=== PATIENT | female | born 1995 | race Caucasian/White ===

== ENCOUNTER 2018-05-14 13:37 | Emergency (ER) | payer BC ==
--- NOTE | 2018-05-14 15:58 | RAD ---
HISTORY: calf pain and swelling COMPARISONS: None relevant TECHNIQUE: Multiple transverse and longitudinal ultrasound images were obtained of the right lower extremity from the level of the common femoral vein inferiorly through to the infrapopliteal veins using grayscale, color Doppler, and spectral Doppler imaging with and without compression and with augmentation. Comparison images were obtained of the contralateral common femoral vein. FINDINGS: VEINS: The venous system of the right lower extremity is compressible throughout its course, with normal flow on color Doppler imaging and normal response to augmentation on spectral Doppler imaging. SOFT TISSUES: Unremarkable. OTHER FINDINGS: None. IMPRESSION: NO RIGHT LOWER EXTREMITY DEEP VEIN THROMBOSIS
[2018-05-14 16:58] VITALS: BP 128/87
--- NOTE | 2018-05-14 18:17 | ED ---
Lower Extremity - HPI Summary HPI Summary: Pt. is a 23-year-old female who presents emergency department for left leg pain and cramping times several days. Patient notes that she flew home from [place] 4 days ago. Patient states when she got off the plane she had bilateral lower leg edema. Edema resolved by the next morning. She states she also is a frequent runner. She denies any new activities otherwise. No chest pain or shortness of breath. Pain is worse with activity. Patient is on oral contraceptives. She otherwise has no past medical history. Symptoms are mild to moderate in severity. - History of Current Complaint Chief Complaint: EDExtremityLower Stated Complaint: RT LEG PAIN Time Seen by Provider: 05/14/18 13:50 Hx Obtained From: Patient Hx Last Menstrual Period: 08/23/16 Pain Intensity: 0 Pain Scale Used: 0-10 Numeric - Allergies/Home Medications Allergies/Adverse Reactions: Allergies Allergy/AdvReac Type Severity Reaction Status Date / Time No Known Allergies Allergy Unverified 05/14/18 13:47 PMH/Surg Hx/FS Hx/Imm Hx Previously Healthy: Yes Endocrine/Hematology History: Denies: Hx Diabetes, Hx Thyroid Disease Cardiovascular History: Denies: Hx Hypertension, Hx Pacemaker/ICD Respiratory History: Reports: Hx Asthma Denies: Hx Chronic Obstructive Pulmonary Disease (COPD) GI History: Denies: Hx Ulcer History: Denies: Hx Renal Disease Sensory History: Denies: Hx Hearing Aid Psychiatric History: Denies: Hx Panic Disorder - Immunization History Immunizations Up to Date: Yes Infectious Disease History: No Infectious Disease History: Denies: Hx Hepatitis, Hx Human Immunodeficiency Virus (HIV), Traveled Outside the [place] in Last 30 Days - Family History Known Family History: Positive: Other - FAther positive history for cancer, currently in treatment - Social History Occupation: Student Lives: With Family Alcohol Use: Occasionally Alcohol Amount: "every other day or so" Substance Use Type: Reports: None Smoking Status (MU): Never Smoked Tobacco Review of Systems Cardiovascular: Negative Negative: Palpitations, Chest Pain Respiratory: Negative Negative: Shortness Of Breath Positive: Other - right lower leg pain and cramping Skin: Negative Negative: Weakness, Paresthesia, Numbness All Other Systems Reviewed And Are Negative: Yes Physical Exam Triage Information Reviewed: Yes Vital Signs On Initial Exam: Initial Vitals Temp Pulse Resp BP Pulse Ox 98.3 F 90 15 130/90 100 08/21/18 13:44 05/14/18 13:44 05/14/18 13:44 05/14/18 13:44 05/14/18 13:44 Vital Signs Reviewed: Yes Appearance: Positive: Well-Appearing - Pt. sitting up in bed in no acute distress. Skin: Positive: Warm, Dry Head/Face: Positive: Normal Head/Face Inspection Eyes: Positive: Normal, EOMI Neck: Positive: Supple Respiratory/Lung Sounds: Positive: Clear to Auscultation, Breath Sounds Present Cardiovascular: Positive: Normal, RRR Musculoskeletal: Positive: Other - No pitting edema to bilateral lower extremities. Bilateral palpable pedal pulses. No wounds, rashes or signs of infection. Mild pain to palpation to the right. Negative Dhaval. No pain to the left leg. Neurological: Positive: Normal, CN Intact II-III Psychiatric: Positive: Affect/Mood Appropriate Diagnostics - Vital Signs Vital Signs Temp Pulse Resp BP Pulse Ox 05/14/18 16:57 98 F 70 16 128/87 100 05/14/18 13:44 98.3 F 90 15 130/90 100 - Laboratory Lab Statement: Any lab studies that have been ordered have been reviewed, and results considered in the medical decision making process. Lower Extremity Course/Dx - Course Course Of Treatment: Pt. presenting with left calf pain after recent long travel as well as being on control. Given her risk factors for DVT, venous duplex was ordered to rule out DVT. Venous ultrasound is negative for DVT or acute findings, reading per radiology. Results were discussed with patient. Suspect muscle strain. Advised to stretch before and after running. To ice and elevate intermittently. Anti-inflammatories for pain. Close follow- up with PCP if symptoms continue and return to the ER for change or worsen. - Diagnoses Differential Diagnosis/HQI/PQRI: Positive: DVT, Sprain, Strain Provider Diagnoses: Muscle strain, Muscle cramp Discharge - Sign-Out/Discharge Documenting (check all that apply): Patient Departure - Discharge Plan Condition: Good Disposition: HOME Patient Education Materials: Muscle Strain (ED), Muscle Cramp (ED) Referrals: [facility] [Outside] No Primary Care Phys,NOPCP [Primary Care Provider] - Additional Instructions: Schedule a follow up appointment with your PCP Ice leg intermittently Stretch before and after funning Increase fluids Take a daily multivitamin Return to ER if symptoms change or worsen - Billing Disposition and Condition Condition: GOOD Disposition: Home
== END 2018-05-14 16:57 | disposition home or self-care (01) ==
LOC: ED 13:37
DX: S86.912A Strain of unspecified muscle(s) and tendon(s) at lower leg level, left leg, initial encounter (principal); X58.XXXA Exposure to other specified factors, initial encounter; Y92.9 Unspecified place or not applicable; R25.2 Cramp and spasm
CPT/HCPCS: 99282

== ENCOUNTER 2018-10-19 10:04 | Emergency (ER) | payer BC ==
[2018-10-19 10:19] VITALS: BP 116/76
--- NOTE | 2018-10-19 11:04 | UC ---
Throat Pain/Nasal Gavin HPI - HPI Summary HPI Summary: LEFT side of throat more uncomfortable. also left cervical anterior discomfort. VSS: 997 5/10 throat discomfort. Nurse's Note: starting last night sore throat, left side is swollen sore. - History of Current Complaint Chief Complaint: UCGeneralIllness Stated Complaint: THROAT PAIN Time Seen by Provider: 10/19/18 10:27 Hx Last Menstrual Period: unknown Pain Intensity: 5 - Allergies/Home Medications Allergies/Adverse Reactions: Allergies Allergy/AdvReac Type Severity Reaction Status Date / Time No Known Allergies Allergy Unverified 10/19/18 10:22 Home Medications: Home Medications Norgestrel-Ethinyl Estradiol [Fot-[id number] Tablet] 1 each PO DAILY WITH MEAL 10/19/18 [History Confirmed 10/19/18] PMH/Surg Hx/FS Hx/Imm Hx Previously Healthy: Yes Respiratory History: Asthma, Bronchitis - Surgical History Surgical History: None Surgery Procedure, Year, and Place: denies - Family History Known Family History: Positive: Other - FAther positive history for cancer, currently in treatment - Social History Alcohol Use: Weekly Alcohol Amount: "every other day or so" Substance Use Type: None Smoking Status (MU): Never Smoked Tobacco Review of Systems All Other Systems Reviewed And Are Negative: Yes Constitutional: Positive: Negative Skin: Positive: Negative Eyes: Positive: Negative ENT: Positive: Sore Throat. Negative: Sinus Congestion Respiratory: Positive: Negative Cardiovascular: Positive: Negative Gastrointestinal: Positive: Negative Genitourinary: Positive: Negative Motor: Positive: Negative Neurovascular: Positive: Negative Musculoskeletal: Positive: Negative Neurological: Positive: Negative Psychological: Positive: Negative Is Patient Immunocompromised?: No Physical Exam Triage Information Reviewed: Yes Appearance: Well-Appearing Vital Signs: Initial Vital Signs Temp 99.7 F 10/19/18 10:16 Pulse 78 10/19/18 10:16 Resp 18 10/19/18 10:16 BP 116/76 10/19/18 10:16 Pulse Ox 100 10/19/18 10:16 Vital Signs Reviewed: Yes Eye Exam: Normal ENT Exam: Normal ENT: Positive: Pharyngeal erythema, Tonsillar swelling - left greater than right ; not to midline. Negative: Nasal congestion, Tonsillar exudate, Sinus tenderness Dental Exam: Normal Neck exam: Normal Neck: Positive: 1 Respiratory: Positive: Chest non-tender, Lungs clear, Normal breath sounds Cardiovascular: Positive: RRR, No Murmur, Pulses Normal Abdomen Description: Positive: Nontender, No Organomegaly, Soft Musculoskeletal Exam: Normal Neurological Exam: Normal Psychological Exam: Normal Skin Exam: Normal Throat Pain/Nasal Course/Dx - Course Course Of Treatment: Sore throat; left side of throat more uncomfortable. Also left cervical anterior discomfort. Throat open. No SOB or difficulty swallowing. Rapid strep positive. Dx: strep throat. Treatment: amoxicillin, twice a day for 10 days. Viscous lidocaine gargle. - Differential Dx/Diagnosis Differential Diagnosis/HQI/PQRI: Foreign Body, Laryngitis, Pharyngitis, Tonsillitis Provider Diagnosis: Strep pharyngitis Discharge - Sign-Out/Discharge Documenting (check all that apply): Patient Departure All imaging exams completed and their final reports reviewed: No Studies - Discharge Plan Condition: Stable Disposition: HOME Prescriptions: Amoxicillin PO (*) [Amoxicillin 875 MG (*)] 875 mg PO BID #20 tab MDD 2 Lidocaine 2% VISCOUS* [Xylocaine 2% Viscous*] 15 ml SWISH SPIT Q6H #1 btl MDD 3 Patient Education Materials: Strep Throat (DC) Referrals: No Primary Care Phys,NOPCP [Primary Care Provider] - Additional Instructions: WE DISCUSSED: PLEASE SEEK CARE AT THE EMERGENCY DEPARTMENT IF SYMPTOMS WORSEN OR IF NEW SYMPTOMS DEVELOP. FOLLOW UP WITH YOUR PRIMARY CARE PHYSICIAN IF CONDITION CONTINUES BEYOND 3 DAYS WITHOUT IMPROVEMENT. YOUR DIAGNOSIS IS: STREP THROAT YOUR PRESCRIPTION RECOMMENDATION IS: amoxicillin, twice a day for ten days; viscous lidocaine gargle for comfort OTHER INSTRUCTIONS: USEFUL WAYS TO FEEL BETTER WITHOUT MEDICATIONS: STAND UNDER SHOWER STREAM TO LOOSEN SECRETIONS. USE A VAPORIZOR. STAY AWAY FROM ANY SMOKE OR IRRITANTS. USE SALINE NASAL SPRAY TO KEEP FLOW OF MUCOUS FROM NOSTRILS AND SINUSES. CONSIDER USING NETI POT TO HELP WITH ALLERGIES AND CONGESTION IN THE NOSE. USE THIS THREE TIMES A WEEK. YOU CAN GET THIS AT [employer] IN [place] OR VARIOUS DRUGSTORES. DRINK LOTS OF WARM FLUIDS USEFUL HOME REMEDIES: WARM WATER GARGLES, WITH TSP OF SALT PER 8 OUNCES OF WATER, GARGLE FOR A FEW SECONDS AND SPIT OUT; GARGLE AND SPIT OUT; EVERY THREE HOURS. AND/OR: WARM WATER OR TEA, HONEY AND LEMON; 2-3 CUPS A DAY. FOR SORE THROAT: KEEP THROAT MOIST WITH LOZENGES; TEA AND HONEY. USE WARM WATER GARGLES 3-4 TIMES A DAY. FOLLOW UP: RE-CHECK IN 1O DAYS, NEEDED, IF YOU ARE NOT IMPROVING. RETURN HERE OR SEE YOUR PHYSICIAN. RE-CHECK SOONER IF INCREASED PAIN OR TEMPERATURE. - Billing Disposition and Condition Condition: STABLE Disposition: Home
== END 2018-10-19 11:28 | disposition home or self-care (01) ==
LOC: UCEAST 10:04
DX: J02.0 Streptococcal pharyngitis (principal); J45.909 Unspecified asthma, uncomplicated; R29.898 Other symptoms and signs involving the musculoskeletal system
CPT/HCPCS: 87651; 99212; G0463

== ENCOUNTER 2019-02-23 13:44 | Emergency (ER) | payer BC ==
[2019-02-23 14:00] VITALS: BP 108/70
--- NOTE | 2019-02-27 12:50 | UC ---
Throat Pain/Nasal Gavin HPI - HPI Summary HPI Summary: Sore throat , started today. Feels it is strep. Had strep in [place] this yr. nothing makes it better/worse. no other assoc. symptoms. - History of Current Complaint Chief Complaint: UCRespiratory Stated Complaint: SORE THROAT Time Seen by Provider: 02/23/19 13:50 Hx Obtained From: Patient Hx Last Menstrual Period: unknown Pain Intensity: 1 Pain Scale Used: Adult Non Verbal - Allergies/Home Medications Allergies/Adverse Reactions: Allergies Allergy/AdvReac Type Severity Reaction Status Date / Time No Known Allergies Allergy Unverified 02/23/19 14:00 PMH/Surg Hx/FS Hx/Imm Hx - Additional Past Medical History Additional PMH: none Previously Healthy: Yes - Surgical History Surgical History: None Surgery Procedure, Year, and Place: denies - Family History Known Family History: Positive: Other - FAther positive history for cancer, currently in treatment - Social History Alcohol Use: Weekly Alcohol Amount: "every other day or so" Substance Use Type: None Smoking Status (MU): Never Smoked Tobacco Review of Systems All Other Systems Reviewed And Are Negative: Yes Constitutional: Positive: Negative. Negative: Fever Skin: Negative: Rash ENT: Positive: Sore Throat. Negative: Nasal Discharge Respiratory: Negative: Cough Cardiovascular: Positive: Negative Gastrointestinal: Negative: Nausea Physical Exam Triage Information Reviewed: Yes Appearance: Well-Appearing Vital Signs: Initial Vital Signs Temp 98.4 F 02/23/19 13:55 Pulse 80 02/23/19 13:55 Resp 18 02/23/19 13:55 BP 108/70 02/23/19 13:55 Pulse Ox 100 02/23/19 13:55 Vital Signs Reviewed: Yes Eyes: Positive: Conjunctiva Clear ENT: Positive: Pharynx normal, TMs normal Neck: Positive: Supple, No Lymphadenopathy Respiratory Exam: Normal Cardiovascular Exam: Normal Throat Pain/Nasal Course/Dx - Course Course Of Treatment: NEG RAPID STREP TODAY AFTER ONE DAY OF SORE THROAT. EXAM NL. VITALS GOOD. [place] RECOMMENDED - Differential Dx/Diagnosis Differential Diagnosis/HQI/PQRI: Pharyngitis, Tonsillitis, URI Provider Diagnosis: Pharyngitis Discharge - Sign-Out/Discharge Documenting (check all that apply): Patient Departure All imaging exams completed and their final reports reviewed: No Studies - Discharge Plan Condition: Good Disposition: HOME Patient Education Materials: Pharyngitis (ED) Referrals: No Primary Care Phys,NOPCP [Primary Care Provider] - Additional Instructions: please follow up with your pcp. - Billing Disposition and Condition Condition: GOOD Disposition: Home
== END 2019-02-23 14:25 | disposition home or self-care (01) ==
LOC: UCEAST 13:44
DX: J02.9 Acute pharyngitis, unspecified (principal)
CPT/HCPCS: 87651; 99211; G0463

== ENCOUNTER 2019-03-07 08:25 | Emergency (ER) | payer BC ==
--- OUTSIDE RECORDS SUMMARY | 2019-03-07 08:31 | XMS REPORT | Continuity of Care Document ---
:1995 External Reference #:[id number] Author Name Concetta Hall NP Address [address] [facility] [place] [address] Care Team Providers Name Role Phone Can Stahl MD Care Team Information Butter Grader Unavailable Can Stahl MD Primary Care Physician Unavailable Payers Date Identification Numbers Payment Provider Subscriber Effective: 2016 Policy Number: [id number] BC/BS Of GENNARO Chaz Hannah PayID: [id number] [address] [place] [id number] Family History Date Family Member(s) Observation Comments Father 51 Mother 49 Social History Type Date Description Comments Sex Unknown Marital Status Single Lives With Mother And Father Occupation data base coordinator [employer] Tobacco Use Start: Unknown Nonsmoker ETOH Use Occasional Recreational Drug Use Denies Drug Use Tobacco Use Start: Unknown Patient has never smoked Smoking Status Reviewed: 03/25/18 Patient has never smoked Exercise Type/Frequency Does not exercise Exercise Type/Frequency Used to play soccer daily Allergies, Adverse Reactions, Alerts Description No Known Drug Allergies Medications Active Medications SIG Qnty Indications Ordering Date Provider Methylphenidate Take one by mouth 30tabs F90.0 Concetta Larsen 03/05/2019 Hydrochloride ER daily Please fill JEFFREY Hall 36mg early due to Tablets ER allergic reaction Advair Diskus one inhalation 60units J45.20 Concetta Larsen 06/06/2017 twice daily JEFFREY Hall 250-50mcg/Dose Aerosol Proair HFA take 1-2 puffs 8.500gm J45.20 Concetta Larsen 06/06/2017 108(90Base) prior to exercise JEFFREY Hall mcg/Act Aerosol and as needed for wheezing and difficulty breathing Lo Loestrin Fe 1 by mouth every Unknown 1mg-10 mcg day / 10 mcg Tablets History Medications Prednisone take 2 by mouth 10tabs J03.90 Concetta AlasMelani 02/26/2019 - 20mg as one dose JEFFREY Hall 03/05/2019 Tablets daily until gone Prednisone take 2 by mouth 14tabs J45.901 Concetta AlasMelani 01/17/2019 - 20mg as one dose JEFFREY Hall 02/26/2019 Tablets daily until gone Mupirocin apply to 22gm L01.00 Concetta AlasMelani 08/07/2018 - 2% affected area 3 JEFFREY Hall 03/05/2019 Ointment times per day until healed Sulfamethoxazole/Tr 2 po x 1 then 1 [facility]tabs [facility] DS po bid x 2 more [facility] 03/28/2018 days 800-160mg Tablets Concerta 1 by mouth once 30tabs [facility], - 36mg a day in the Afnp-C 03/05/2019 Tablets ER morning Mononessa 1 po qd 28tabs [facility], - Afnp-C 06/06/2017 0.25-35mg-mcg Tablets Advair Diskus 1 puff twice a Unknown - day, rinse after 12/10/2017 250-50mcg/Dose Aerosol Proair HFA 2 puffs every 4 Unknown - hours as needed 12/10/2017 108(90Base) mcg/Act Aerosol Immunizations CPT Code Status Date Vaccine Lot # [id number] Given 08/07/2018 Influenza Vac, Quadrivalent, Slit Virus, Im [id number] 58273 Given 04/11/2011 Meningococcal Conjugate Vaccine,Serogroups For Intramuscular Use 42106 Given 03/18/2009 Tdap Tetanus, W Pertussis 59629 Given 03/12/2008 Gardasil vacine typs 6,11,16,18 3 dose schedule 27028 Given 03/12/2008 Hep A Ped 2-Dose Immunization 98961 Given 02/04/2007 Gardasil vacine typs 6,11,16,18 3 dose schedule 70648 Given 02/04/2007 Hep A Ped 2-Dose Immunization 78775 Given 10/29/2006 Gardasil vacine typs 6,11,16,18 3 dose schedule 27788 Given 12/05/2005 Meningococcal Conjugate Vaccine,Serogroups For Intramuscular Use 51473 Given 07/15/2004 Tdap Tetanus, W Pertussis 87079 Given 05/14/1999 MMR Virus Immunization 56062 Given 05/05/1999 (IPV) Inactive Poliovirus Vaccine 17156 Given 05/05/1999 DTaP Immunization 04689 Given 01/22/1997 Varicella (Chicken Pox) Immunization 15472 Given 06/15/1995 Hib PRP-T Conjugate 4 Dose Schedule 25760 Given 06/15/1995 DTaP Immunization 37073 Given 06/15/1995 MMR Virus Immunization 12076 Given 06/15/1995 (IPV) Inactive Poliovirus Vaccine 03171 Given 1994 Hepatitis B Immunization, -19 Years 40163 Given 1994 DTaP Immunization 87319 Given 1994 Hib PRP-T Conjugate 4 Dose Schedule 32780 Given 1994 (IPV) Inactive Poliovirus Vaccine 81143 Given 1994 DTaP Immunization 84875 Given 1994 Hib PRP-T Conjugate 4 Dose Schedule 69618 Given 1994 (IPV) Inactive Poliovirus Vaccine 18175 Given 1994 DTaP Immunization 21537 Given 1994 Hib PRP-T Conjugate 4 Dose Schedule 10484 Given 1994 Hepatitis B Immunization, [place]-19 Years 31928 Given 1994 Hepatitis B Immunization, [place]-19 Years Vital Signs Date Vital Result Comment 03/05/2019 9:18am BP Systolic 100 mmHg BP Diastolic 70 mmHg Heart Rate 70 /min Body Temperature 97.5 F Respiratory Rate 20 /min Weight 126.00 lb 02/26/2019 10:11am BP Systolic 110 mmHg BP Diastolic 68 mmHg Heart Rate 82 /min Body Temperature 98.2 F Respiratory Rate 18 /min Weight 126.00 lb 01/17/2019 2:10pm BP Systolic 110 mmHg BP Diastolic 60 mmHg Heart Rate 88 /min Body Temperature 98.5 F Respiratory Rate 16 /min Height 64 inches 5'4" Weight 129.00 lb BMI (Body Mass Index) 22.1 kg/m2 12/25/2018 11:01am BP Systolic 110 mmHg BP Diastolic 80 mmHg Heart Rate 68 /min Body Temperature 98.2 F Respiratory Rate 18 /min Weight 129.00 lb 08/07/2018 2:09pm BP Systolic 100 mmHg BP Diastolic 70 mmHg Heart Rate 68 /min Body Temperature 97.9 F Respiratory Rate 16 /min Height 64 inches 5'4" Weight 131.00 lb BMI (Body Mass Index) 22.5 kg/m2 06/19/2018 11:29am BP Systolic 110 mmHg BP Diastolic 70 mmHg Heart Rate 72 /min Body Temperature 98.1 F Respiratory Rate 16 /min Height 64 inches 5'4" Weight 126.00 lb BMI (Body Mass Index) 21.6 kg/m2 03/25/2018 1:35pm BP Systolic 118 mmHg BP Diastolic 70 mmHg Heart Rate 68 /min Body Temperature 98.3 F Respiratory Rate 15 /min Height 64 inches 5'4" Weight 124.00 lb BMI (Body Mass Index) 21.3 kg/m2 12/10/2017 1:04pm BP Systolic 108 mmHg BP Diastolic 62 mmHg Heart Rate 80 /min Body Temperature 99.2 F Height 64 inches 5'4" Weight 127.00 lb BMI (Body Mass Index) 21.8 kg/m2 06/06/2017 11:28am BP Systolic 100 mmHg BP Diastolic 60 mmHg Heart Rate 80 /min Body Temperature 98.7 F Respiratory Rate 16 /min Height 64 inches 5'4" Weight 129.38 lb BMI (Body Mass Index) 22.2 kg/m2 11/06/2016 10:11am BP Systolic 90 mmHg BP Diastolic 60 mmHg Heart Rate 64 /min Body Temperature 98.1 F Respiratory Rate 16 /min Height 64 inches 5'4" Weight 130.00 lb BMI (Body Mass Index) 22.3 kg/m2 Results Test Date Facility Test Result H/L Range Note Laboratory test [facility] Medicine Quickstrep NEGATIVE Negative finding 9 (607)- - Urine Culture And [facility] Urine Culture SEE RESULT 1 Sensitivities 8 BELOW Laboratory test [facility] Glucose 137 mg/dL High 70-105 finding 8 (607)- - Fingerstick (Fma) Hemoglobin A1c (Fma) 4.7% % 4.1-5.7 Ua - Micro (Fma) 03/25/2018 [facility] Appearance slightly cloudy (607)- - Color yellow Glucose, Urine (Fma/CMC/CTX) 100mg/dl # Bilirubin neg Ketones trace # SP Grav 1.025 Blood large # PH 6.0 Protein ssa 3+ # Urobil 0.2 Nitrite positive # Leukocytes (Fma/CMC/Centrex) small # Hyaline - /Lpf Granular - /Lpf WBC (Fma,Centrex) >50 RBC >20 Mucus (Fma/CBC/Centrex) - /Lpf Epith occ /Lpf # Bacteria 3+ /Hpf # Amorphous (Fma/CMC/Centrex) - /Lpf Crystals, Fluid (Fma/CMC/CTX) - Z#Comments - 1 SEE RESULT BELOW Name: KOMAL HANNAH : [address]: Abigail Do NP Acct: [id number] Unit: [id number] AGE: 23 Location: [facility] Re03/25/18 SEX: F Status: REG REF SPEC: [id number] ADAIR: 03/25/18-[address] [facility] [address]: Abigail Do BUSINESS ANALYSIS ANALYST REQ: [id number] RECD: 03/25/18 STATUS: COMP _ SOURCE: URINE SPDESC: ORDERED: Urine Culture COMMENTS: [id number] noonan urine top Procedure Result Reported Site Urine Culture Final 03/27/18- 08 ML Organism 1 ESCHERICHIA COLI [place] Count 25-50,000 (Moderate) CFU/ML 1. ESCHERICHIA COLI M.I.C. RX --------- ------ Ampicillin 4 S Cefazolin <=4 S Cefepime <=1 S Ceftriaxone <=1 S Ciprofloxacin <=0.25 S Gentamicin <=1 S Levofloxacin <=0.12 S Meropenem <=0.25 S Nitrofurantoin <=16 S Tetracycline <=1 S Pipercillin/Tazobactam <=4 S Trimethoprim/Sulfamethoxazole <=20 S Amoxicillin/Clavulanic Acid <=2 S Aztreonam <=1 S Contact the Microbiology Department for any additional antibiotic reporting. * ML - Main Lab . END OF REPORT DEPARTMENT OF PATHOLOGY, [address] [place] [address] Jasbir Quintanilla M.D. Director [facility] # [id number] Procedures Date Code Description Status 03/25/2018 77563 Finger Or Heel Stick Completed 11/06/2016 77244 Pure Tone Audiometry Completed Encounters Type Date Location Provider Dx Diagnosis Office Visit 02/26/2019 [facility] Office Concetta Interiano.90 Acute tonsillitis , 10:15a Rafael, BUSINESS ANALYSIS ANALYST unspecified Office Visit 01/17/2019 [facility] Office Concetta Larsen J06.9 Acute upper 2:15p JEFFREY Hall respiratory infection, unspecified J45.901 Unspecified asthma with (acute) exacerbation Office Visit 12/25/2018 11:00a [facility] Concetta Larsen 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 Rafael BUSINESS ANALYSIS ANALYST hyperactivity disorder, predom inattentive type J45.20 Mild intermittent asthma, uncomplicated R14.0 Abdominal distension (gaseous) Office Visit 08/07/2018 2:15p [facility] Concetta Larsen L01.00 ImpetigoRafael, BUSINESS ANALYSIS ANALYST unspecified Z23 Encounter for immunization Office Visit 06/19/2018 11:30a [facility] Concetta Larsen 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 Hall hyperactivity disorder, predom inattentive type J45.20 Mild intermittent asthma, uncomplicated Office Visit 03/25/2018 1:30p [facility] Abigail N39.0 Urinary tract [place], Afnp-C infection, site not specified R81 Glycosuria Office Visit 12/10/2017 1:00p [facility] Abigail 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 [place], hyperactivity Afnp-C disorder, predom inattentive type J06.9 Acute upper respiratory infection, unspecified J45.20 Mild intermittent asthma, uncomplicated Office Visit 06/06/2017 11:30a [facility] Concetta Larsen 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 Rafael BUSINESS ANALYSIS ANALYST hyperactivity disorder, predom inattentive type J45.20 Mild intermittent asthma, uncomplicated Office Visit 11/06/2016 10:00a [facility] Abigail 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 [place], hyperactivity Afnp-C disorder, predom inattentive type J45.20 Mild intermittent asthma, uncomplicated H91.93 Unspecified hearing loss, bilateral Plan of Treatment Future Appointment(s):06/27/2019 11:30 am - Concetta Hall NP at [facility] Jgddks0903/05/2019 - Concetta Hall NPL50.0 Allergic urticariaComments:Stop your new pills and go back to the old formulation.F90.0 Attention-deficit hyperactivity disorder, predominantly inatNew Medication:Methylphenidate Hydrochloride ER 36 mg - Take one by mouth daily Please fill early due to allergic cfmffypwC97.8 Allergy status to other drugs, medicaments and biological substances statusAllComments:1. Patient has been queried about patient's goals/preferences and functional/lifestyle goals at relevant visits. If relevant, describe: Has been discussed, noted above2. Treatment goals as explainedto the patient: see above3. Are there barriers to meeting treatment goals? Yes If Yes, please describe: Barriers include possible insurance limits, disease process, and difficulty with lifestyle changes4. Self- Management goals as described to the patient: Yes, see above As always, we strongly encourage a healthy diet and making physical activity a part of your every day life. If you have questions about how or where to start, please contact the office.
--- OUTSIDE RECORDS SUMMARY | 2019-03-07 08:31 | XMS REPORT | Continuity of Care Document ---
:1995 External Reference #:[id number] Author Name Concetta Hall NP Address [address] [facility] [place] [address] Care Team Providers Name Role Phone Can Stahl MD Care Team Information Case Coordinator Unavailable Can Stahl MD Primary Care Physician Unavailable Payers Date Identification Numbers Payment Provider Subscriber Effective: 2016 Policy Number: [id number] BC/BS Of GENNARO Chaz Hannah PayID: [id number] [place] [address] Family History Date Family Member(s) Observation Comments [...] Medications SIG Qnty Indications Ordering Date Provider Prednisone take 2 by mouth as 10tabs J03.90 Concetta Larsen 02/26/2019 20mg one dose daily JEFFREY Hall Tablets until gone Mupirocin apply to affected 22gm L01.00 Concetta Larsen 08/07/2018 2% Ointment area 3 times per JEFFREY Hall day until healed Advair Diskus one inhalation 60units J45.20 Concetta Larsen 06/06/2017 twice daily JEFFREY Hall 250-50mcg/Dose Aerosol Proair HFA take 1-2 puffs 8.500gm J45.20 Concetta Larsen 06/06/2017 prior to exercise JEFFREY Hall 108(90Base) mcg/Act and as needed for Aerosol wheezing and difficulty breathing Concerta 1 by mouth once a 30tabs Abigail 36mg Tablets day in the morning Tevin Do ER Lo Loestrin Fe 1 by mouth every Unknown 1mg-10 day mcg / 10 mcg Tablets History Medications Prednisone take 2 by mouth 14tabs J45.901 Concetta Hall, 01/17/2019 - 20mg as one dose ACCORDION REPAIRER 02/26/2019 Tablets daily until gone Sulfamethoxazole/Tr 2 po x 1 then 1 6tabs N39.0 Abigail [facility], 2017 - imethoprim DS po bid x 2 more Zen-C 03/28/2018 days 800-160mg Tablets Mononessa 1 po qd 28tabs Abigail [facility], - Afnp-C 06/06/2017 0.25-35mg-mcg Tablets Advair Diskus 1 puff twice a Unknown - day, rinse 12/10/2017 250-50mcg/Dose after Aerosol Proair HFA 2 puffs every 4 Unknown - hours as needed 12/10/2017 108(90Base) mcg/Act Aerosol Immunizations CPT Code Status Date Vaccine Lot # [id number] Given 08/07/2018 Influenza Vac, Quadrivalent, Slit Virus, Im [id number] 82927 Given 04/11/2011 Meningococcal Conjugate Vaccine,Serogroups For Intramuscular Use 57996 Given 03/18/2009 Tdap Tetanus, W Pertussis 42131 Given 03/12/2008 Gardasil vacine typs 6,11,16,18 3 dose schedule 99823 Given 03/12/2008 Hep A Ped 2-Dose Immunization 10624 Given 02/04/2007 Gardasil vacine typs 6,11,16,18 3 dose schedule 52119 Given 02/04/2007 Hep A Ped 2-Dose Immunization 84476 Given 10/29/2006 Gardasil vacine typs 6,11,16,18 3 dose schedule 83527 Given 12/05/2005 Meningococcal Conjugate Vaccine,Serogroups For Intramuscular Use 05699 Given 07/15/2004 Tdap Tetanus, W Pertussis 90669 Given 05/14/1999 MMR Virus Immunization 67500 Given 05/05/1999 (IPV) Inactive Poliovirus Vaccine 20670 Given 05/05/1999 DTaP Immunization 39383 Given 01/22/1997 Varicella (Chicken Pox) Immunization 28149 Given 06/15/1995 Hib PRP-T Conjugate 4 Dose Schedule 41152 Given 06/15/1995 DTaP Immunization 94343 Given 06/15/1995 MMR Virus Immunization 24716 Given 06/15/1995 (IPV) Inactive Poliovirus Vaccine 98254 Given 1994 Hepatitis B Immunization, -19 Years 53360 Given 1994 DTaP Immunization 50341 Given 1994 Hib PRP-T Conjugate 4 Dose Schedule 20024 Given 1994 (IPV) Inactive Poliovirus Vaccine 35649 Given 1994 DTaP Immunization 59232 Given 1994 Hib PRP-T Conjugate 4 Dose Schedule 35346 Given 1994 (IPV) Inactive Poliovirus Vaccine 08019 Given 1994 DTaP Immunization 87368 Given 1994 Hib PRP-T Conjugate 4 Dose Schedule 11936 Given 1994 Hepatitis B Immunization, -19 Years 79687 Given 1994 Hepatitis B Immunization, -19 Years Vital Signs Date Vital Result Comment 02/26/2019 10:11am BP Systolic 110 mmHg BP [...] Date Facility Test Result H/L Range Note Urine Culture And [facility] Urine Culture SEE RESULT 1 Sensitivities 8 BELOW Laboratory test [facility] Glucose 137 mg/dL High 70-105 finding 8 (607)- - Fingerstick (Fma) Hemoglobin A1c (Fma) 4.7% % 4.1-5.7 Ua - Micro (a) 03/25/2018 [facility] Appearance slightly cloudy (607)- - Color yellow [...] [address]: Abigail Do NP Acct: [id number] Unit: [id number] AGE: 23 Location: [facility] Re03/25/18 SEX: F Status: REG REF SPEC: [id number] ADAIR: 03/25/18-[address]: Abigail Do NP REQ: [id number] RECD: 03/25/18 STATUS: COMP _ SOURCE: URINE SPDESC: ORDERED: Urine Culture COMMENTS: [id number] noonan urine top Procedure Result Reported Site Urine Culture Final 07/04/18- 0839 ML Organism 1 ESCHERICHIA COLI [place] Count 25-50,000 (Moderate) CFU/ML 1. ESCHERICHIA COLI [...] . END OF REPORT DEPARTMENT OF PATHOLOGY, [address] [place] [address] Jasbir Quintanilla M.D. 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 Hall hyperactivity disorder, predom inattentive type J45.20 Mild intermittent asthma, uncomplicated R14.0 Abdominal distension (gaseous) Office Visit 08/07/2018 2:15p [facility] Concetta Larsen L01.00 ImpetiRafael trotter NP unspecified Z23 Encounter for immunization Office Visit 06/19/2018 11:30a [facility] Concetta Larsen 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 Hall hyperactivity disorder, predom inattentive type J45.20 Mild intermittent asthma, uncomplicated Office Visit 03/25/2018 1:30p [facility] Office Abigail N39.0 Urinary tract [place], Afnp-C infection, site not specified R81 Glycosuria Office Visit 12/10/2017 1:00p [facility] Abigail 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 [place], hyperactivity Afnp-C disorder, predom inattentive type J06.9 Acute upper respiratory infection, unspecified J45.20 Mild intermittent asthma, uncomplicated Office Visit 06/06/2017 11:30a [facility] Concetta Larsen 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 Hall hyperactivity disorder, predom inattentive type J45.20 Mild intermittent asthma, uncomplicated Office Visit 11/06/2016 10:00a [facility] Abigail 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 [place], hyperactivity Afnp-C disorder, predom inattentive type J45.20 Mild intermittent asthma, uncomplicated H91.93 Unspecified hearing loss, bilateral Plan of Treatment Future Appointment(s):06/27/2019 11:30 am - Concetta Hall NP at [facility] Jnezwe8002/26/2019 - Concetta Hall, NPJ03.90 Acute tonsillitis, unspecifiedNew Medication:Prednisone 20 mg - take 2 by mouth as one dose daily until goneNew Labs:Quickstrep, Ordered: 02/26/19Comments:Call DUSTIN if condition changes/worsens in any wayAllComments:1. Patient has been queried about patient 's goals/preferences and functional/lifestyle goals at relevant visits. [...]
[2019-03-07] MEDS ORDERED: Famotidine IV* 10 MG/ML 2 ML (20 mg) IV SLOW PU ONE (10:15)
[2019-03-07] MEDS ORDERED: NS 0.9% 1000 ML** 1,000 ML IV SCH (10:15)
[2019-03-07] MEDS ORDERED: methylPREDNISolone 125 MG* 2 ML VIAL IV ONE (10:15)
--- NOTE | 2019-03-07 11:34 | UC ---
Skin Complaint HPI - HPI Summary HPI Summary: ONSET OF DIFFUSE HIVES 4 DAYS AGO. NO NEW EXPOSURES THAT SHE CAN IDENTIFY. NO TONGUE OR LIP SWELLING OR RESPIRATORY INVOLVEMENT. HAS MILD SEASONAL ALLERGIES BUT HAS NEVER HAD HIVES LIKE THIS BEFORE. HAS BEEN TAKING BENADRYL AROUND-THE- CLOCK WITH NO EFFECT. SAW HER PCP 2 DAYS AGO AND WAS PUT ON 40 MG OF PREDNISONE DAILY. SHE HAS TAKEN 2 DOSES BUT STATES THE HIVES ARE CONTINUING TO WORSEN. NO FEVER. - History of Current Complaint Chief Complaint: UCRash Time Seen by Provider: 03/07/19 09:40 Stated Complaint: HIVES Hx Obtained From: Patient Hx Last Menstrual Period: pill Onset/Duration: Sudden Onset, Lasting Days, Still Present Timing: Constant Onset Severity: Moderate Current Severity: Moderate Pain Intensity: 2 Pain Scale Used: 0-10 Numeric Location: Diffuse Character: Pruritus, Hives Aggravating Factor(s): Touch Alleviating Factor(s): Nothing Associated Signs & Symptoms: Positive: Rash. Negative: Difficulty Breathing, Fever, Cough, Wheezing, Throat Tightening, Syncope, Tenderness - Allergy/Home Medications Allergies/Adverse Reactions: Allergies Allergy/AdvReac Type Severity Reaction Status Date / Time No Known Allergies Allergy Verified 03/07/19 08:34 PMH/Surg Hx/FS Hx/Imm Hx Respiratory History: Asthma - Surgical History Surgical History: None Surgery Procedure, Year, and Place: denies - Family History Known Family History: Positive: Other - FAther positive history for cancer, currently in treatment - Social History Alcohol Use: Weekly Alcohol Amount: "every other day or so" Substance Use Type: None Smoking Status (MU): Never Smoked Tobacco Review of Systems All Other Systems Reviewed And Are Negative: Yes Constitutional: Positive: Negative Skin: Positive: Rash - DIFFUSE HIVES Respiratory: Positive: Negative Cardiovascular: Positive: Negative Gastrointestinal: Positive: Negative Musculoskeletal: Positive: Negative Physical Exam Triage Information Reviewed: Yes Appearance: Well-Appearing, No Pain Distress, Well-Nourished Vital Signs: Initial Vital Signs Temp 98.3 F 03/07/19 08:30 Pulse 67 03/07/19 08:30 Resp 16 03/07/19 08:30 BP 113/77 03/07/19 08:30 Pulse Ox 100 03/07/19 08:30 Vital Signs Reviewed: Yes Eyes: Positive: Conjunctiva Clear ENT: Positive: Hearing grossly normal Neck: Positive: Supple Respiratory Exam: Normal Cardiovascular Exam: Normal Abdomen Description: Positive: Soft Musculoskeletal: Positive: No Edema Neurological: Positive: Alert Psychological: Positive: Age Appropriate Behavior Skin: Positive: Rashes - DIFFUSE URTICARIAL RASH OVER EXTREMITIES AND TRUNK Course/Dx - Course Course Of Treatment: NO DISTINCT IMPROVEMENT AFTER 1 L NORMAL SALINE, 125 MG SOLU-MEDROL AND 40 MG OF PEPCID. WILL INCREASE HER DAILY DOSE OF PREDNISONE TO 60 MG FOR THE NEXT 3 DAYS. ADVISED TO TAKE ZYRTEC 10 MG TWICE DAILY AND HYDROXYZINE AT NIGHT. CASE WAS DISCUSSED WITH DR. CABALLERO FROM [facility]. THEY WILL BE HAPPY TO SEE THE PATIENT IN FOLLOW-UP EARLY NEXT WEEK. ADVISED PATIENT TO GO TO THE ER WITHOUT FAIL IF HER SYMPTOMS WORSEN. - Diagnoses Provider Diagnosis: Diffuse urticaria Discharge - Sign-Out/Discharge Documenting (check all that apply): Patient Departure All imaging exams completed and their final reports reviewed: No Studies - Discharge Plan Condition: Stable Disposition: HOME Prescriptions: hydrOXYzine HCL TAB* [Atarax 25 MG TAB*] 1 - 2 tab PO DAILY #30 tab predniSONE TAB* [Deltasone 20 MG TAB*] 60 mg PO DAILY #6 tab Patient Education Materials: Urticaria (ED) Referrals: [facility] [Provider Group] - 3 Days Concetta Hall NP [Primary Care Provider] - If Needed Additional Instructions: YOU RECEIVED 1 L NORMAL SALINE, 125 MG SOLU-MEDROL AND 40 MG PEPCID IN THE URGENT CARE TODAY. CONTINUE PREDNISONE AT INCREASED DOSE OF 60 MG ONCE DAILY FOR THE NEXT 3 DAYS. TAKE 10 MG ZYRTEC TWICE DAILY AND 25-50 MG OF HYDROXYZINE AT BEDTIME. KEEP COOL, CLEAN AND DRY ABLE. AVOID HEAT AND HOT WATER. APPLY HYPOALLERGENIC MOISTURIZER DAILY. IF YOU ARE NOT IMPROVED BY SUNDAY MORNING CALL [facility] FOR AN APPOINTMENT. THEY ARE AWARE OF YOUR CASE AND ARE WILLING TO SQUEEZE YOU IN THE SCHEDULE. ASK TO SPEAK WITH THE HEAD NURSE, CHASE AND ADVISE HER THAT DR. CABALLERO IS AWARE OF YOUR SITUATION. GO TO THE ER WITHOUT FAIL IF YOU DEVELOP ANY RESPIRATORY INVOLVEMENT, TONGUE/ LIP SWELLING, FEVER, NAUSEA/VOMITING OR ANY OTHER CONCERNING SYMPTOMS. [facility] COUNT INCLUDES THE [facility] Address: [address] [place] [address] - Billing Disposition and Condition Condition: STABLE Disposition: Home
[2019-03-07 11:41] VITALS: BP 118/66
== END 2019-03-07 11:41 | disposition home or self-care (01) ==
LOC: UCEAST 08:25
DX: L50.9 Urticaria, unspecified (principal)
CPT/HCPCS: 96360; 96365; 99212; G0463; J2930